=== PATIENT | male | born 1965 | race African-American/Black ===

== ENCOUNTER 2016-08-27 14:36 | Emergency (ER) | payer OTHER ==
[~2016-08-27] VITALS: Ht 152.4 cm; Wt 69.0 kg
[~2016-08-27 14:36] MED LIST: HYD25 PO; IBUP400T22 PO; LISI20TA11 PO
[2016-08-27 14:44] VITALS: Ht 152.4 cm; Wt 69.0 kg
[2016-08-27] MEDS ORDERED: AMLO-147 PO (15:16)
[2016-08-27] MEDS ORDERED: LISI20TA11 PO (15:16)
--- NOTE | 2016-08-27 15:25 | ERD ---
ER Documentation Chief Complaint Date/Time DATE: 08/27/16 TIME: 15:22 Chief Complaint NEEDS REFILL ON HTN MEDS HPI This patient is a 51-year-old male presenting to the emergency department requesting a refill on his amlodipine 10 mg and lisinopril 20 mg per day which he takes for essential hypertension. The patient states he has been out of his blood pressure medication for approximately 1 week. The patient denies any dizziness, chest pain, shortness of breath, headache, hematuria, or other symptoms currently. The patient does follow up with his primary care physician regularly. ROS All systems reviewed and are negative except as per history of present illness. Medications Home Meds Active Scripts Amlodipine Besylate* (Amlodipine Besylate*) 10 Mg Tablet, 10 MG PO DAILY, #30 TAB Prov:RADHA HAWKINS PA-C 08/27/16 Lisinopril* (Lisinopril*) 20 Mg Tablet, 20 MG PO DAILY, #30 TAB Prov:RDAHA HAWKINS PA-C 08/27/16 Lisinopril* (Lisinopril*) 20 Mg Tablet, 20 MG PO DAILY, #30 TAB Prov:JUSTINA LÓPEZ MD 01/11/16 Hydrochlorothiazide* (Hydrochlorothiazide*) 25 Mg Tab, 50 MG PO DAILY, #30 TAB Prov:JUSTINA LÓPEZ MD 01/11/16 Reported Medications Ibuprofen* (Ibuprofen*) 400 Mg Tablet, 400 MG PO TID, TAB 01/11/16 Lisinopril* (Lisinopril*) 20 Mg Tablet, 20 MG PO DAILY, #30 TAB 01/11/16 Allergies Allergies: Coded Allergies: No Known Allergy (Unverified , 01/11/16) PMhx/Soc History of Surgery: No Hx Neurological Disorder: No Hx Respiratory Disorders: No Hx Cardiac Disorders: Yes (HYPERTENSION) Hx Psychiatric Problems: No Hx Miscellaneous Medical Probl: No Hx Alcohol Use: No Hx Substance Use: No FmHx Noncontributory for chief complaint Physical Exam Vitals Vital Signs Date Time Temp Pulse Resp B/P Pulse Ox O2 Delivery O2 Flow Rate FiO2 08/27/16 14:44 98.1 90 18 182/90 99 Physical Exam Const: Well-appearing male in no acute distress. Head: Atraumatic Eyes: Normal Conjunctiva ENT: Normal External Ears, Nose and Mouth. Neck: Full range of motion..~ No meningismus. Resp: Clear to auscultation bilaterally Cardio: Regular rate and rhythm, no murmurs Abd: Soft, non tender, non distended. Normal bowel sounds Skin: No petechiae or rashes Back: No midline or flank tenderness Ext: No cyanosis, or edema Neur: Awake and alert Psych: Normal Mood and Affect Procedures/MDM 51-year-old male presents for refill of his amlodipine and lisinopril which he takes daily for essential hypertension. On physical examination the patient has elevated blood pressure 182/90 which is consistent with him being out of his hypertensive medication for 1 week. On history and clinical examination there is no sign of acute stroke or hypertensive crisis. The patient understands how to take his blood pressure medication and has taken them for a long period of time. The patient was given strict ER return precautions and he demonstrates good understanding. The patient is to have close follow-up with the primary care physician. Departure Diagnosis: Primary Impression: Encounter for medication refill Condition: Fair Patient Instructions: Taking Medicine Safely, Hypertension, Established Referrals: JUSTINA HIDALGO MD (PCP) [facility] YOU HAVE RECEIVED A MEDICAL SCREENING EXAM AND THE RESULTS INDICATE THAT YOU DO NOT HAVE A CONDITION THAT REQUIRES URGENT TREATMENT IN THE EMERGENCY DEPARTMENT. FURTHER EVALUATION AND TREATMENT OF YOUR CONDITION CAN WAIT UNTIL YOU ARE SEEN IN YOUR DOCTORS OFFICE WITHIN THE NEXT 1-2 DAYS. IT IS YOUR RESPONSIBILITY TO MAKE AN APPOINTMENT FOR FOLOW-UP CARE. IF YOU HAVE A PRIMARY DOCTOR --you should call your primary doctor and schedule an appointment IF YOU DO NOT HAVE A PRIMARY DOCTOR YOU CAN CALL OUR PHYSICIAN REFERRAL HOTLINE AT IF YOU CAN NOT AFFORD TO SEE A PHYSICIAN YOU CAN CHOSE FROM THE FOLLOWING [facility] [address] [facility]. [facility] [address] [facility] [facility] [address] [facility] [facility] [address] [facility] [facility] [address] [facility]. [facility]. [address] Additional Instructions: Follow up with your PCP within the next 1-3 days for a repeat evaluation and a possible referral to a specialist, if required. Return the the emergency department immediately if symptoms worsen or change. If you have any questions regarding medications, ask your pharmacist or us before you leave. If any adverse reactions, occur while taking your medications, discontinue the treatment and return to the emergency department immediately. If any new or worsening symptoms, uncontrolled fevers, or other unexplained symptoms occur, return to the emergency department immediately. Take your medications as directed, and complete the entire course of treatment. RADHA HAWKINS PA-C August 27, 2016 15:25
== END 2016-08-27 16:07 | disposition home or self-care (01) ==
LOC: E/R 14:36
DX: Z76.0 Encounter for issue of repeat prescription (principal); I10 Essential (primary) hypertension
CPT/HCPCS: 99281